=== PATIENT | female | born 1965 | race Caucasian/White ===

== ENCOUNTER 2023-10-20 17:43 | Emergency (ER) | payer BC ==
[~2023-10-20] VITALS: Ht 157.5 cm; Wt 117.5 kg
[~2023-10-20 17:43] MED LIST: BUSPIRONE HCL5 MG PO; CETIRIZINE HCL10 MG PO; DECADRON4 M1 PO; LAMOTRIGINE150 MG PO; LEVOTHYROXINE75 MCG PO; LEXAPRO20 MG PO; OMEPRAZOLE40 MG PO; PROVENTIL HFA6.7 GM INH; SPIRONOLACTONE25 MG PO; Z.0.LASIX40 MG; Z.0.NEXIUM40 M1; Z.0.SYNTHROID50 MCG; dulera INH
[2023-10-20] MEDS ORDERED: KETOROLAC TROMETHAMINE 30 MG/ML VIAL IV STA (18:01)
[2023-10-20] MEDS ORDERED: ONDANSETRON HCL INJ 2MG/ML 2ML 2 MG/ML VIAL IV STA (18:01)
[2023-10-20] MEDS ORDERED: SODIUM CHLORIDE FLUSH 10 ML SYR IV PRN (18:15)
[2023-10-20 18:29] LABS: BASOPHILS % 0.5 % (0.0-1.0); EOSINOPHILS % 0.2 % (0.0-6.0); HEMATOCRIT 37.8 % (34.2-44.1); HEMOGLOBIN 12.7 g/dL (12.0-16.0); LYMPHOCYTES # (AUTO) 1.7 (1.0-3.2); LYMPHOCYTES % 28.6 % (18.0-39.1); MEAN CORPUSCULAR HGB CONC 33.6 g/dL (31-35); MEAN CORPUSCULAR VOLUME 89.4 fL (81-99); MONOCYTES # (AUTO) 0.5 (0.2-0.8); MONOCYTES % 8.4 % (4.4-11.3); NEUTROPHILS # (AUTO) 3.8 (2.1-6.9); NEUTROPHILS % 62.1 % (38.7-80.0); PLATELET COUNT 210 x10e3/uL (140-360); RED BLOOD COUNT 4.23 x10e6/uL (3.6-5.1); RED CELL DISTRIBUTION WIDTH 14.2 % (11.7-14.4); WHITE BLOOD COUNT 6.05 x10e3/uL (4.8-10.8)
[2023-10-20 18:49] LABS: ALANINE AMINOTRANSFERASE 12 IU/L (0-55); ALBUMIN 3.5 g/dL (3.5-5.0); ALBUMIN/GLOBULIN RATIO 1.3 (0.8-2.0); ALKALINE PHOSPHATASE 87 IU/L (40-150); ANION GAP 13.3 mmol/L (8-16); BILIRUBIN,TOTAL 0.8 mg/dL (0.2-1.2); BLOOD UREA NITROGEN 25 mg/dL (7-26); BUN/CREATININE RATIO 32 (6-25); CARBON DIOXIDE 27 mmol/L (22-29); CHLORIDE 103 mmol/L (98-107); CREATININE, SERUM 0.77 mg/dL (0.57-1.11); EST GLOMERULAR FILTRATION RATE 90 ML/MIN (>=60); GLUCOSE 84 mg/dL (74-118); POTASSIUM 3.3 mmol/L (3.5-5.1); SODIUM 140 mmol/L (136-145); TOTAL PROTEIN 6.2 g/dL (6.5-8.1)
[2023-10-20 19:00] LABS: TROPONIN I < 0.001 ng/mL (0-0.300)
[2023-10-20 20:07] VITALS: BP 105/70; PULSE 67; RESP 16; TEMP 98.4; O2SAT 100
== END 2023-10-20 20:07 | disposition home or self-care (01) ==
LOC: MERGE 17:58 → ER 17:58
DX: M54.2 Cervicalgia (principal); M48.02 Spinal stenosis, cervical region; E03.9 Hypothyroidism, unspecified; K21.9 Gastro-esophageal reflux disease without esophagitis; F41.9 Anxiety disorder, unspecified; F31.9 Bipolar disorder, unspecified
CPT/HCPCS: 36415; 71046; 72125; 80053; 83880; 84484; 85025; 85379; 93005; 94760; 99284; J1885; J2405